=== PATIENT | male | born 1965 | race Caucasian/White ===

== ENCOUNTER 2017-05-27 18:02 | Emergency (ER) | payer OTHER ==
[2017-05-27 18:27] VITALS: RESP 20
[2017-05-27] MEDS ORDERED: SODIUM CHLORIDE 0.9% 1000ML 1,000 ML IV ONE ×2 (18:40→19:40)
[2017-05-27 18:41] LABS: CALCIUM 7.8 mg/dl (8.5-10.1); POTASSIUM 3.3 mMol/L (3.5-5.1)
[2017-05-27] MEDS ORDERED: ONDANSETRON HCL 4 MG/2 ML SOL ONE (18:44)
[2017-05-27] MEDS ORDERED: ONDANSETRON HCL 4 MG/2 ML SOL IV ONE (18:46)
[2017-05-27] MEDS ORDERED: SODIUM CHLORIDE 0.9% FLUSH 10 ML SOL IV PRN (19:05)
[2017-05-27 19:12] LABS: BASOPHILS % (AUTO) 0 % (0-3); EOSINOPHILS % (AUTO) 0 % (0-9); HEMATOCRIT 36 % (39-53); MEAN CORPUSCULAR HGB CONC 37.5 gm/dl (32.0-36.0); MONOCYTES % (AUTO) 7.7 % (0-12); NEUTROPHILS % (AUTO) 62.8 % (37-80)
[2017-05-27 19:16] LABS: MEAN CORPUSCULAR VOLUME 80 fL (80-100)
[2017-05-27] MEDS ORDERED: POTASSIUM CHLORIDE 10 MEQ TER PO ONE (20:00)
[2017-05-27] MEDS ORDERED: POTASSIUM CHLORIDE 10 MEQ TER ONE (20:02)
[2017-05-27 20:44] LABS: AMPHETAMINES NEGATIVE (NEGATIVE); METHADONE NEGATIVE (NEGATIVE); OPIATES(OP13) NEGATIVE (NEGATIVE); OXYCODONE(OXY) NEGATIVE (NEGATIVE); PROPOXYPHENE(PPX) NEGATIVE (NEGATIVE); TRICYCLIC ANTIDEPRESSANTS NEGATIVE (NEGATIVE)
[2017-05-27] MEDS ORDERED: VANCOMYCIN HCL 500 MG PDS 1,000 MG in SODIUM CHLORIDE 0.9% 250 ML 250 ML IV ONE (21:27)
[2017-05-27] MEDS ORDERED: CEFEPIME HYDROCHLORIDE 2 GM PDS IV SCH (21:30)
[2017-05-27] MEDS ORDERED: VANCOMYCIN HYDROCHLORIDE 500 MG PDS IV ONE (21:30)
[2017-05-27] MEDS ORDERED: CEFTAZIDIME 1 GM PDS IV SCH (21:45)
[2017-05-27] MEDS ORDERED: ACETAMINOPHEN 500 MG 500 MG TAB ONE (22:19)
[2017-05-27] MEDS ORDERED: ACETAMINOPHEN 500 MG 500 MG TAB PO ONE (22:23)
[2017-05-27 23:03] VITALS: BP 117/64; PULSE 84; TEMP 100.7; O2SAT 96
== END 2017-05-27 22:36 | disposition short-term general hospital (02) | DRG 99 ==
LOC: ED 18:02
DX: A86 Unspecified viral encephalitis (principal)
CPT/HCPCS: 36415; 70460; 71045; 80048; 80305; 85025; 87040; 87804; 96365; 96366; 96374; 99285; 99291; 99292; J0713; J2405; J3370; Q9967; A9270-GY

== ENCOUNTER 2017-09-27 12:24 | Emergency (ER) | payer OTHER ==
[2017-09-27 13:17] VITALS: RESP 16; TEMP 98.2; O2SAT 97
[2017-09-27 13:20] VITALS: BP 126/82; PULSE 76
[2017-09-27] MEDS ORDERED: TDAP VACCINE 0.5 ML SUS IM ONE ×2 (13:39→13:44)
== END 2017-09-27 14:56 | disposition home or self-care (01) | DRG 556 ==
LOC: ED 12:24
DX: M25.512 Pain in left shoulder (principal); M25.511 Pain in right shoulder; M54.2 Cervicalgia; R07.9 Chest pain, unspecified
CPT/HCPCS: 71046; 73030; 90471; 90715; 99283